=== PATIENT | female | born 1950 | race Caucasian/White ===

== ENCOUNTER → 2019-02-15 09:27 | Outpatient (CLI) | payer MEDICARE, MEDICAID, SELFPAY ==
--- NOTE | 2019-02-15 | DI.MRI.S_ITS ---
PROCEDURE: MR LUMBAR SPINE WO CON INDICATIONS: THORACOLUMBAR PAIN TECHNIQUE: Noncontrast sagittal T1 spin echo and T2 fast echo, sagittal STIR, axial T1 and T2 fast spin echo through the lumbar spine. In cases with scoliosis, additional coronal T2 fast spin echo may be performed. COMPARISON: None. FINDINGS: Image quality: Excellent. Alignment and Curvature: There is normal bony alignment. Bone Marrow: There is a 1.5 cm intraosseous hemangioma in L3. Marrow is otherwise of normal overall signal. No acute vertebral body compression fractures. Spinal Cord: Conus medullaris terminates at the L1-L2 level. Visualized cord demonstrates normal signal and size. Paraspinous Soft Tissues: No paravertebral masses. L1-L2: Preserved disc height. Mild disc desiccation. There is diffuse posterior disc bulge and left posterior paramedian disc extrusion causing severe narrowing of the left lateral recess and possible nerve root impingement. The central canal is mildly narrowed. No foraminal stenosis. L2-L3: Preserved disc height. Mild disc desiccation. There is mild posterior disc bulge. The central canal is patent. No foraminal stenosis. No definitive nerve root impingement. L3-L4: Mild to moderate loss of disc height and disc desiccation. There is diffuse posterior disc bulge. Mild bilateral facet arthropathy. The central canal is mildly narrowed. Mild bilateral foraminal stenosis. Mild bilateral definitive nerve root impingement. L4-L5: Mild loss of disc height and disc desiccation. There is diffuse posterior disc bulge. Mild bilateral facet arthropathy. The central canal is mildly narrowed. Mild bilateral foraminal stenosis. Mild bilateral definitive nerve root impingement. L5-S1: Preserved disc height. Mild disc desiccation. There is mild posterior disc bulge. Mild bilateral facet arthropathy. The central canal is patent. Mild bilateral foraminal stenosis. Mild bilateral definitive nerve root impingement. IMPRESSION: 1. Multilevel degenerative disc disease and facet arthropathy in lumbar spine, most pronounced at L1-L2. 2. Mild central canal stenosis at L1-L2, LCF L4 and L4-L5. 3. Mild bilateral foraminal stenosis at several levels as described. Dictated by: Silva Avalos M.D. on 02/15/2019 at 15:13 Approved by: Silva Avalos M.D. on 02/15/2019 at 15:22
--- NOTE | 2019-02-15 | DI.MRI.S_ITS ---
PROCEDURE: MR THORACIC SPINE WO CON INDICATIONS: THORACOLUMBAR PAIN TECHNIQUE: Noncontrast sagittal T1 spine echo and T2 fast spin echo, sagittal STIR, axial T1 and T2 fast spin echo through the thoracic spine. COMPARISON: None. FINDINGS: Image quality: Excellent. Alignment and Curvature: There is normal bony alignment. Bone Marrow: There is a 7 mm intraosseous hemangioma in the T8 vertebral body. Marrow is of normal overall signal. No acute vertebral body compression fractures. Spinal Cord: Visualized spinal cord is normal in size and signal. Paraspinous Soft Tissues: No paravertebral masses. Miscellaneous: Mild degenerative disc disease at T10-T11 and T11-T12. There is mild central canal stenosis at T11-T12. IMPRESSION: 1. Mild degenerative disease at T10-T11 and T11-T12. 2. Mild central canal stenosis at T11-T12. Dictated by: Silva Avalos M.D. on 02/15/2019 at 15:07 Approved by: Silva Avalos M.D. on 02/15/2019 at 15:11
== END ==
PROVIDERS: PCP Family Medicine; Visit Provider Physician Assistant
DX: M51.34 Other intervertebral disc degeneration, thoracic region (principal); M48.04 Spinal stenosis, thoracic region; M51.36 Other intervertebral disc degeneration, lumbar region; M48.061 Spinal stenosis, lumbar region without neurogenic claudication; M47.816 Spondylosis without myelopathy or radiculopathy, lumbar region; M47.817 Spondylosis without myelopathy or radiculopathy, lumbosacral region; M54.5 Low back pain
CPT/HCPCS: 72146; 72148

== ENCOUNTER → 2020-06-27 12:35 | Outpatient (CLI) | payer MEDICARE, MEDICAID, SELFPAY ==
--- NOTE | 2020-06-27 | DI.MRI.S_ITS ---
PROCEDURE: MR KNEE LT WO CON INDICATIONS: Pain in left knee TECHNIQUE: Noncontrast sagittal PD fast spin echo and T2 fast spin echo with fat saturation, sagittal 3-D FLASH with fat saturation; coronal T1 spin echo and PD fast spin echo with fat saturation, and axial PD fast spin echo with fat saturation through the knee. COMPARISON: None. FINDINGS: Image quality: Excellent. Menisci: There is medial and lateral meniscal extrusion. Intrasubstance degeneration is present in the body and posterior root of the medial meniscus. The medial meniscus demonstrates normal morphology and internal signal. The meniscal root ligaments appear intact. Cruciate ligaments: The anterior and posterior cruciate ligaments appear intact. Medial structures: The medial collateral ligament appears intact. The semimembranosus tendon insertions and meniscocapsular junction appear intact. Visualized portions of the pes anserinus tendons appear normal. No abnormal bursal fluid. Lateral structures: The lateral collateral ligament, long and short heads of the biceps femoris tendon appear intact. The popliteus tendon appears normal. Iliotibial band appears normal. Anterior structures: The quadriceps and patellar tendons appear intact. Patellar alignment is normal. No femoral trochlear dysplasia or ventral trochlear prominence. No edema in the infrapatellar fat pad. Bones and cartilage: No bone marrow contusions or fractures. Chondromalacia patella. There is also cartilage thinning and fibrillation the medial and lateral femorotibial compartments. Joint space: There is small knee joint effusion. There is a moderate-sized Alvarez's cyst. Normal appearing synovial plicae are incidentally noted. IMPRESSION: 1. 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 2. Bilateral meniscal extrusion. 3. Chondromalacia. 4. A moderate-sized Alvarez cyst. 5. Small knee joint effusion. Dictated by: Silva Avalos M.D. on 06/27/2020 at 14:21 Approved by: Silva Avalos M.D. on 06/27/2020 at 17:33
== END ==
PROVIDERS: PCP Family Medicine; Referring Provider Family Medicine; Visit Provider Physician Assistant Medical
DX: M25.562 Pain in left knee (principal); M94.262 Chondromalacia, left knee; M71.22 Synovial cyst of popliteal space [Baker], left knee; M25.462 Effusion, left knee
CPT/HCPCS: 73721

== ENCOUNTER → 2022-02-27 09:47 | Outpatient (CLI) | payer MEDICARE, MEDICAID, SELFPAY ==
[2022-02-27 19:50] LABS: Add Manual Diff / Slide Review NO; Alanine Aminotransferase 18 IU/L (<35); Albumin 3.9 g/dL (3.5-5.0); Albumin Globulin Ratio 1.3 (1.0-2.8); Alkaline Phosphatase 71 U/L (38-126); Aspartate Aminotransferase 31 IU/L (14-36); BUN Creatinine Ratio 16.7 (6-22); Basophils Absolute Auto 100 /uL (0-100); Basophils Percent Auto 0.8 % (0-2); Bilirubin Total 0.8 mg/dL (0.2-1.3); Blood Urea Nitrogen 11 mg/dL (7-17); Calcium 9.1 mg/dL (8.4-10.2); Carbon Dioxide 31 mmol/L (22-32); Chloride 102 mmol/L (98-107); Cholesterol 219 mg/dL (140-199); Eosinophils Absolute Auto 100 /uL (0-450); Estimated Glomerular Filt Rate > 60 mL/min (>60); Globulin 2.9 g/dL (1.7-4.1); Glucose 90 mg/dL (80-110); HDL Cholesterol 67 mg/dL (40-60); HEMOLYSIS < 15 (0-50); Hematocrit 40.4 % (36-46); Hemoglobin 13.5 g/dL (12.0-16.0); LDL Cholesterol Calculated 135 mg/dL (<100); Lymphocytes Absolute Auto 2700 /uL (1100-4500); Lymphocytes Percent Auto 35.6 % (25-40); Mean Corpuscular HGB Conc 33.3 % (30-36); Mean Corpuscular Hemoglobin 29.8 PG (26-34); Mean Corpuscular Volume 89.3 fL (80-100); Monocytes Absolute Auto 500 /uL (0-900); Monocytes Percent Auto 6.4 % (3-14); Neutrophils Absolute Auto 4100 /uL (1500-7000); Neutrophils Percent Auto 55.2 % (50-75); Platelet Count 246 X10^3/uL (150-400); Potassium 4.2 mmol/L (3.4-5.1); Red Blood Cell Count 4.53 X10^6/uL (4.0-5.2); Red Cell Distribution Width 13.4 % (11.6-14.8); Sodium 138 mmol/L (137-145); Total Protein 6.8 g/dL (6.3-8.2); Triglycerides 84 mg/dL (35-150); White Blood Cell Count 7.5 X10^3/uL (4.5-11.0)
[2022-02-27 20:37] LABS: Thyroid Stimulating Hormone 2.19 uIU/mL (0.47-4.68)
== END ==
PROVIDERS: PCP Family Medicine; Visit Provider Family Medicine
DX: R53.83 Other fatigue (principal); E78.5 Hyperlipidemia, unspecified
CPT/HCPCS: 80053; 80061; 84443; 85025

== ENCOUNTER → 2022-08-19 13:38 | Outpatient (CLI) | payer MEDICARE, MEDICAID, SELFPAY ==
[2022-08-19 19:15] LABS: Add Manual Diff / Slide Review NO; Basophils Absolute Auto 100 /uL (0-100); Eosinophils Absolute Auto 100 /uL (0-450); Eosinophils Percent Auto 1.6 % (2-4); Hematocrit 40.2 % (36-46); Hemoglobin 13.5 g/dL (12.0-16.0); Lymphocytes Absolute Auto 2600 /uL (1100-4500); Lymphocytes Percent Auto 32.3 % (25-40); Mean Corpuscular HGB Conc 33.5 % (30-36); Mean Corpuscular Volume 89.6 fL (80-100); Monocytes Absolute Auto 600 /uL (0-900); Monocytes Percent Auto 7.2 % (3-14); Neutrophils Absolute Auto 4700 /uL (1500-7000); Neutrophils Percent Auto 57.9 % (50-75); Platelet Count 232 X10^3/uL (150-400); Red Blood Cell Count 4.49 X10^6/uL (4.0-5.2); Red Cell Distribution Width 13.6 % (11.6-14.8); White Blood Cell Count 8.1 X10^3/uL (4.5-11.0)
[2022-08-19 19:27] LABS: BUN Creatinine Ratio 25.4 (6-22); Blood Urea Nitrogen 16 mg/dL (7-17); Estimated Glomerular Filt Rate > 60 mL/min (>60)
[2022-08-19 20:17] LABS: Vitamin B12 840 pg/mL (239-931)
[2022-08-22 15:15] LABS: Albumin 3.8 g/dL (2.9-4.4); Alpha-1-Globulin 0.2 g/dL (0.0-0.4); Alpha-2-Globulin 0.8 g/dL (0.4-1.0); Gamma Globulin 0.9 g/dL (0.4-1.8); Globulin Total 2.9 g/dL (2.2-3.9); Protein, Total 6.7 g/dL (6.0-8.5)
== END ==
PROVIDERS: PCP Family Medicine; Visit Provider Family Medicine
DX: K21.9 Gastro-esophageal reflux disease without esophagitis (principal); E78.5 Hyperlipidemia, unspecified; G62.9 Polyneuropathy, unspecified; M54.16 Radiculopathy, lumbar region; R53.82 Chronic fatigue, unspecified
CPT/HCPCS: 82565; 82607; 84155; 84165; 84443; 84520; 85025